=== PATIENT | male | born 1950 | race Caucasian/White ===

== ENCOUNTER → 2019-05-20 10:42 | Outpatient (CLI) | payer OTHER | END | disposition home or self-care (01) | LOC: D.HCCARDIO 10:42 | PROVIDERS: ATTEND Internal Medicine Cardiovascular Disease | DX: R94.31 Abnormal electrocardiogram [ECG] [EKG] (principal) ==

== ENCOUNTER → 2019-06-01 10:31 | Outpatient (CLI) | payer OTHER | END | disposition home or self-care (01) | LOC: D.HCCARDIO 10:31 | PROVIDERS: ATTEND Internal Medicine Cardiovascular Disease | DX: R94.31 Abnormal electrocardiogram [ECG] [EKG] (principal) ==

== ENCOUNTER 2019-06-08 12:00 | Outpatient (CLI) | payer OTHER ==
[~2019-06-08] VITALS: Ht 185.4 cm; Wt 80.9 kg
--- NOTE | ~2019-06-08 | HEMODYNAMI ---
PATIENT:BLANCA SMITH MEDICAL RECORD: [id number] : 54 LOCATION:[facility] ADMISSION DATE: 06/08/19 Generatedon:06/08/201914:32 Patient name: BLANCA SMITH Patient #: [id number] SSN: [id number] : 1950 Date of study: 06/08/2019 Page: Of Hemodynamic Procedure Report Patient Data Patient Demographics Procedure consent was obtained First Name: BLANCA Gender: Male Last Name: LUIS : 1950 Patient #: [id number] Age: 68 year(s) Race: SSN: [id number] Additional ID: [id number] Contact details Address: [place] [address] State: [place] City: [place] Zip code: [address] Past Medical History Allergies: No known allergies Admission Admission Data Admission Date: 06/08/2019 Admission Time: 12:00 Admit Source: Other Lab Results Lab Result Date: 06/08/2019 Lab Result Time: 0:00 Biochemistry Name Units Result Min Max BUN mg/dl 11 --(-*--)-- 7 18 Creatinine mg/dl 1.1 --(--*-)-- 0.6 1.3 eGFR ml/min 70.97159 *-(----)-- 90 120 NONAFRICAN CBC Name Units Result Min Max Hematocrit % 50.4 --(--*-)-- 42 54 Hemoglobin g/dl 18.2 --(----)*- 13.5 17.5 Procedure Procedure Types Cath Procedure Diagnostic Procedure C [facility] w/Coronaries Sedation Charges Moderate Sedation up to 15 minutes Procedure Description Procedure Date Procedure Date: 06/08/2019 Procedure Start Time: 14:16 Procedure End Time: 14:31 Procedure Staff Name Function Chaz Guerrero MD Performing Physician Madison Vasquez RT Monitor Edgar Vaughan RN Nurse Melody Lou RT Scrub Procedure Data Cath Procedure Fluoroscopy Diagnostic fluoroscopy Total fluoroscopy Time: 2.7 time: 2.7 min min Diagnostic fluoroscopy Total fluoroscopy dose: 527 dose: 527 mGy mGy Contrast Material Contrast Material Type Amount (ml) Isovue 370 76 Entry Location Entry Primary Successful Side Size Upsize Upsize Entry Closure Brothers ccessful Closure Location (Fr) 1 (Fr) 2 (Fr) Remarks Device Remarks Radial Right 6 Fr Mechanical artery Short Compression Estimated blood loss: 5 ml Diagnostic catheters Device Type Used For End Catheter Placement DIAGNOSTIC Jase 110cm Procedure 5Fr catheter ([id number]) Procedure Complications No complications Procedure Medications Medication Administration Route Dosage 0.9% NaCl I.V. 100 ml/hr Oxygen etCO2 Nasal cannula 2 l/min Heparin Flush Bag added to field 2 bags (1000units/500ml NS) Lidocaine 2% added to field 20 Radial Cocktail added to field 1 syringe (Verapamil 2mg/Nitro 400mcg/Heparin 1500units) Versed I.V. 2 mg Fentanyl I.V. 100 mcg Versed I.V. 2 mg Radial Cocktail I.A. 1 syringe (Verapamil 2mg/Nitro 400mcg/Heparin 1500units) Versed I.V. 2 mg Hemodynamics Rest HGB: 18.2 (g/dl) Heart Rate: 67 (bpm) Pressure Samples Time Site Value (mmHg) Purpose Heart Use Rate(bpm) 14:20 LV 106/22,22 Snapshot 67 14:21 AO 86/54(68) Pullback 70 14:21 LV 116/4,13 Pullback 70 Gradients Valve Time Site 1 Site 2 Mean SEP/DFP Peak To Heart Use (mmHg) (sec/min) Peak Rate (mmHg) (bpm) Aortic 14:21 LV AO 21 8 30 70 116/4,13 86/54(68) Calculations Valve P-P Mean Valve Index Valve Source Name Gradient Area Flow (cm2) Aortic 30 21 30 21 Snapshots Pre Cath Intra NCS Post Cath Vital Signs Time Heart Resp SPO2 etCO2 NIBP (mmHg) Rhythm Pain Sedation Rate (ipm) (%) (mmHg) Status Level (bpm) 14:02:28 69 10 99 29.9 131/76(107) NSR 0 (11) 10(A) , No pain 14:06:36 67 12 98 20.2 125/81(99) NSR 0 (11) 10(A) , No pain 14:11:26 58 15 89 25.4 113/58(96) NSR 0 (11) 10(A) , No pain 14:15:32 65 19 93 0 110/68(83) NSR 0 (11) 10(A) , No pain 14:19:42 72 14 97 24.6 95/55(68) NSR 0 (11) 10(A) , No pain 14:23:44 67 10 94 31.4 100/60(82) NSR 0 (11) 9(A) , No pain 14:27:50 61 10 96 26.9 99/57(76) NSR 0 (11) 9(A) , No pain 14:31:55 60 10 96 23.9 103/58(81) NSR 0 (11) 9(A) , No pain Medications Time Medication Route Dose Verified Delivered Reason Notes Effectiveness by by 14:02:03 0.9% NaCl I.V. 100 Edgar Edgar Per ml/hr Alexus Vaughan physician RN RN 14:02:12 Oxygen etCO2 2 l/min Edgar Edgar for low 02 Nasal Lorigan Alexus sats cannula RN RN 14:02:21 Heparin Flush added 2 bags Edgar Edgar used for Bag to Alexus Vaughan procedure (1000units/500ml field SIMONS RN NS) 14:02:32 Lidocaine 2% added 20ml Edgar Edgar for local to vial Alexus Vaughan anesthetic field SIMONS RN 14:02:42 Radial Cocktail added 1 Edgar Edgar used for (Verapamil to syringe Alexus Vaughan procedure 2mg/Nitro field SIMONS RN 400mcg/Heparin 1500units) 14:14:36 Versed I.V. 2 mg Edgar Edagr for sedation Alexus Vaughan RN RN 14:14:43 Fentanyl I.V. 100 mcg Edgar Edgar for sedation Alexus Vaughan RN RN 14:18:13 Versed I.V. 2 mg Edgar Edgar for sedation Alexus Vaughan RN RN 14:18:28 Radial Cocktail I.A. 1 Edgar Chaz for (Verapamil syringe Alexus Guerrero MD vasodilation 2mg/Nitro RN 400mcg/Heparin 1500units) 14:20:15 Versed I.V. 2 mg Edgar Edgar for sedation Alexus Vaughan RN admission discharge rn Log Time Note 13:41:28 Procedure Status Elective Heart Cath (OP). 13:41:31 Madison Vasquez RT(R) sent for patient. Start room use. 13:41:34 Time tracking: Regular hours (M-F 7:00 - 5:00) 13:41:41 Plan of Care:Hemodynamics will remain stable., Cardiac rhythm will remain stable., Comfort level will be maintained., Respiratory function will remain adequate., Patient/ family verbilizes understanding of procedure., Procedure tolerated without complication., Recovers from procedure without complications.. 13:42:05 Stress Test: yes; abnormal ANT, INF AND LAT 13:43:20 Informed consent obtained and on chart 13:44:23 Lab Result : Hematocrit 50.4 % 13:44:23 Lab Result : eGFR NONAFRICAN 70.72500 ml/min 13:44:23 Lab Result : Hemoglobin 18.2 g/dl 13:44:23 Lab Result : BUN 11 mg/dl 13:44:23 Lab Result : Creatinine 1.1 mg/dl 13:49:11 Risk of Mortality: 0.1 13:49:16 Risk of blood transfusion: 0.1 13:49:20 Risk of LUCAS: 2.2 13:49:29 Lab results completed and on chart. 13:49:43 Patient allergic to No known allergies 13:51:32 Patient received from Pre/Post Procedure Room to CCL 1 Alert and oriented. Tansferred to table in Supine position. 13:51:34 Warm blankets applied, and torres hugger turned on for patient comfort. 13:51:34 Correct patient and procedure confirmed by team. 13:51:35 ECG and BP/O2 sat monitors applied to patient. 13:55:56 Full Disclosure recording started 13:55:59 Admit Source: Other 13:56:05 H&P Date Dictated: 06/08/2019 Within 30 days and on chart., H&P Addendum completed by physician on day of procedure. (MUST COMPLETE FOR ALL OUTPATIENTS). 13:56:06 Pre-procedure instructions explained to patient. 13:56:06 Pre-op teaching completed and patient verbalized understanding. 13:56:07 Family in patients room. 13:56:08 Patient NPO since Midnight. 13:56:10 Is the patient allergic to Iodine/contrast media? No. 13:56:11 Is patient on blood thinner?No 13:56:13 Patient diabetic? No. 13:56:17 Previous problem with sedation/anesthesia? No ? 13:56:18 Snore? Yes 13:56:19 Sleep apnea? No 13:56:20 Deviated septum? No 13:56:21 Opens mouth fully? Yes 13:56:22 Sticks out tongue? Yes 13:56:23 Airway obstruction? No ? 13:56:24 Dentures? No ? 13:56:28 Pre procedure: right dorsailis pedis pulse 1+ Palpable, but thready & weak; easily obliterated 13:56:29 Modified Brando's test Ulnar < 7 seconds 13:56:31 Patient pain scale 0/10 ?. 13:56:46 IV patent on arrival in left forearm with 0.9% NaCl at [facility]. 13:56:55 Right Radial & Right Groin area was prepped with chlora-prep and draped in sterile fashion 13:56:56 Alarms reviewed by R. N. 13:56:56 Sharps counted by scrub and verified by R.N. 13:57:00 Use device set Radial Dx or PCI 13:57:01 ACIST Syringe (24235) opened to sterile field. 13:57:03 Medline Cath Pack ([id number]) opened to sterile field. 13:57:04 Bag Decanter (2002S) opened to sterile field. 13:57:04 ACIST Hand Control (65946) opened to sterile field. 13:57:04 ACIST Manifold (41594) opened to sterile field. 13:57:05 Tegaderm 4 x 4 (1626W) opened to sterile field. 13:57:06 MBrace Wrist Support ([id number]) opened to sterile field. 13:57:06 NEEDLE Cook 21G 4cm Radial (K97975) opened to sterile field. 13:57:07 EMERALD Guide Wire (502-922) opened to sterile field. 13:57:08 SHEATH 6FR RAIN (3445122) opened to sterile field. 14:01:25 Vital chart was started 14:01:34 If diabetic: On Metformin? N/A 14:01:42 Baseline sample Acquired. 14:01:47 Rhythm: sinus rhythm 14:02:03 0.9% NaCl 100 ml/hr I.V. was administered by Edgar Vaughan RN; Per physician; Verbal order read back and verified. 14:02:12 Oxygen 2 l/min etCO2 Nasal cannula was administered by Edgar Vaughan RN; for low 02 sats; Verbal order read back and verified. 14:02:21 Heparin Flush Bag (1000units/500ml NS) 2 bags added to field was administered by Edgar Vaughan RN; used for procedure; Verbal order read back and verified. 14:02:32 Lidocaine 2% 20ml vial added to field was administered by Edgar Vaughan RN; for local anesthetic; Verbal order read back and verified. 14:02:42 Radial Cocktail (Verapamil 2mg/Nitro 400mcg/Heparin 1500units) 1 syringe added to field was administered by Edgar Vaughan RN; used for procedure; Verbal order read back and verified. 14:10:22 Zero performed for pressure channel P1 14:14:08 --------ALL STOP TIME OUT------ 14:14:09 Final Timeout: patient, procedure, and site verified with staff and physician. All members of the team are in agreement. 14:14:13 Right Radial & Right Groin site verified by team. 14:14:17 Fire Safety Assessment: A--An alcohol-based skin anteseptic being used preoperatively., C--Open oxygen or nitrous oxide is being used., D--An ESU, laser, or fiber-optic light is being used. 14:14:21 Physical assessment completed. ASA score P 2 - A patient with mild systemic disease as per Chaz Guerrero MD. 14:14:27 2) 60-89 Mildly reduced kidney function, and other findings (as for stage 1) point to kidney disease. 14:14:33 Maximum allowable contrast dose (3.7 X eGFR X 0.75)197 ml. 14:14:36 Versed 2 mg I.V. was administered by Edgar Vaughan RN; for sedation; Verbal order read back and verified. 14:14:36 Sedation plan: IV Moderate Sedation Medication:Versed, Fentanyl 14:14:43 Fentanyl 100 mcg I.V. was administered by Edgar Vaughan RN; for sedation; Verbal order read back and verified. 14:15:21 Zero performed for pressure channel P1 14:16:42 Procedure started. 14:16:59 Local anesthetic to right radial artery with Lidocaine 2% by Chaz Guerrero MD.INITIAL ACCESS ONLY 14:17:43 A 6 Fr Short sheath was inserted into the Right Radial artery 14:18:13 Versed 2 mg I.V. was administered by Edgar Vaughan RN; for sedation; Verbal order read back and verified. 14:18:28 Radial Cocktail (Verapamil 2mg/Nitro 400mcg/Heparin 1500units) 1 syringe I.A. was administered by Chaz Guerrero MD; for vasodilation; Verbal order read back and verified. 14:20:07 A DIAGNOSTIC Jase 110cm 5Fr catheter ([id number]) was advanced over the wire and used for Procedure. 14:20:15 Versed 2 mg I.V. was administered by Edgar Vaughan RN; for sedation; Verbal order read back and verified. 14::28 Injector settings: Ml/sec: 5, Volume: 15, 14:20:31 LV gram done using OWENS 14:20:32 LV hemodynamics recorded. 14:20:47 EF : 60 % 14:21:11 LCA angiography performed. 14:25:09 RCA angiography performed. 14:27:12 Catheter removed. 14:27:15 ZEPHYR REGULAR TR BAND (780671) opened to sterile field. 14:27:31 Sheath removed intact; hemostasis achieved with Mechanical Compression to the Right Radial artery. 14:27:35 Procedure ended.(Physican Out) 14:28:00 Fluoroscopy time 02.70 minutes. 14:28:05 Flurop Dose total: 527 14:28:05 Fluoroscopy dose: 527 mGy 14:28:11 Dose Area Product 70518 mGy/cm. 14:28:34 Contrast amount:Isovue 370 76ml. 14:28:39 Maximum allowable dose exceeded? No. 14:28:54 Sharps counted by scrub and verified by R.N. 14:28:57 [place] band inflated with 9cc of air. 14:29:02 Post Procedure Pulses reassessed and unchanged 14:29:05 Post procedure: right dorsailis pedis pulse 2+ Normal; easily identifiable; not easily obliterated. 14:29:09 Post-procedure physical assessment completed. ASA score P 2 - A patient with mild systemic disease as per Chaz Guerrero MD. 14:29:13 Post procedure rhythm: unchanged. 14:29:15 Estimated blood loss: 5 ml 14:29:17 Post procedure instruction explained to patient.Patient verbalizes understanding. 14:29:19 Patient needs reinforcement of post procedure teaching. 14:29:40 Procedure type changed to Cath procedure, Diagnostic procedure, LHC, C w/Coronaries, Sedation Charges, Moderate Sedation up to 15 minutes 14:29:57 Procedure and supply charges have been captured, reviewed, submitted and are correct. 14:30:01 Procedure Complication : No complications 14:30:07 [facility] Findings: MVD- MD will discuss options w/ pt 14:30:11 Operative report dictated upon procedure completion. 14:30:12 See physician's report for complete and final results. 14:30:14 Report given to Pre/Post Procedure Room. 14:30:18 Patient transfered to Pre/Post Procedure Room with Stretcher. 14:31:16 Vital chart was stopped 14:31:19 Procedure ended. 14:31:19 Full Disclosure recording stopped 14:31:37 End room use (Document Last) 14:32:05 End room use (Document Last) 14:32:23 End room use (Document Last) Device Usage Item Name Manufacture Quantity Catalog Hospital Part Current Minima l Lot# / Number Charge Number Stock Stock Serial# Code ACIST Acist 1 91239 026126 [id number] [id number] 20 Syringe Medical (74073) Systems Inc Medline Medline 1 [id number] 826373 96579 714931 5 Cath Pack ([id number]) Bag Microtek 1 2001S 342984 55264 319454 5 Decanter Medical Inc. () ACIST Hand Acist 1 48298 582080 484837 097293 5 Control Medical (07101) Systems Inc ACIST Acist 1 24449 046928 622516 820776 5 Manifold Medical (93897) Systems Inc Tegaderm 4 3M 1 1626W 891127 396376 837741 5 x 4 (1626W) MBrace Advanced 1 140-0250-00 555165 77705 747109 5 Wrist Vascular Support Dynamics ([id number]) NEEDLE Cook Cook Medical 1 [id number] 108646 465773 608357 5 21G 4cm Radial ([id number]) EMERALD Cardinal 1 502-455 174207 494393 730[address] [facility] (502455) SHEATH 6FR Cardinal 1 [id number] 745560 4422890 303366 5 [facility] (0297925) DIAGNOSTIC Terumo 1 80-2100 482901 737409 458876 5 Jase 110cm 5Fr catheter (734184) ZEPHYR Cardinal 1 555443 627135 3785642 599041 5 REGULAR TR Health BAND (578763) Signature Audit [place] Stage Time Signature Unsigned Intra-Procedure 06/08/2019 Madison Vasquez 2:32:05 PM RT(R) Intra-Procedure 06/08/2019 Edgar 2:32:23 PM Alexus SIMONS Intra-Procedure 06/08/2019 Chaz Guerrero MD 2:32:57 PM [facility] [address] [place] [address]
[2019-06-08] MEDS ORDERED: BAYER CHEWABLE81 MG PO (12:22)
[2019-06-08] MEDS ORDERED: FISH OIL 1,0001 CA1 PO (12:22)
[2019-06-08] MEDS ORDERED: B-12 DOTS500 MCG PO (12:23)
[2019-06-08] MEDS ORDERED: ASCORBIC ACID500 MG PO (12:23)
[2019-06-08 12:45] VITALS: BP 168/79; Ht 185.4 cm; Wt 80.9 kg
[2019-06-08 13:08] LABS: ANION GAP 10.6 mmol/L (8-16); CALCIUM 9.3 mg/dL (8.5-10.1); CARBON DIOXIDE 31.2 mmol/L (21.0-32.0); CREATININE - SERUM 1.1 mg/dL (0.6-1.3); LDL-HDL RATIO 1.7 ratio (1.5-3.5); POTASSIUM - SERUM 3.8 mmol/L (3.5-5.1)
[2019-06-08 13:25] LABS: BASOPHILS 0.7 % (0-2); EOSINOPHILS 0.8 % (0-7); HEMATOCRIT 50.4 % (42.0-54.0); HEMOGLOBIN 18.2 g/dL (13.5-17.5); IMMATURE GRANULOCYTES 0.3 % (0-5); LYMPHOCYTES 22.3 % (15-50); MCH 34.8 pg (26.0-34.0); MCHC 36.1 g/dL (31.0-37.0); MCV 96.4 fL (80.0-100.0); MEAN PLATELET VOLUME 11.3 fL (7.4-10.4); MONOCYTES 8.7 % (2-11); NEUTROPHILS 67.2 % (40-80); PLATELET COUNT 195 10x3/uL (130-400); RBC 5.23 10x6/uL (4.20-6.10); RDW 12.2 % (11.5-14.5); WBC 8.8 10x3/uL (4.8-10.8)
--- NOTE | 2019-06-08 14:39 | NUR ---
PT ARRIVED BY STRETCHER. PLACED ON MONITORS. ASSESSMENT COMPLETED. VSS AT THIS TIME. CALL LIGHT WITHIN REACH.
--- NOTE | 2019-06-08 14:55 | NUR ---
RIGHT WRIST DRESSING C/D/I. NO S/S OF HEMATOMA NOTED. CALL LIGHT WITHIN REACH. FAMILY AT BEDSIDE. CALL LIGHT WITHING REACH. VSS AT THIS TIME. FAMILY AT BEDSIDE.
--- NOTE | 2019-06-08 15:25 | NUR ---
PT SITTING UP VISITING WITH FAMILY. RIGHT WRIST Z BAND IN PLACE. NO BLEEDING/HEMATOMA NOTED. CALL LIGHT WITHIN REACH.
--- NOTE | 2019-06-08 16:00 | NUR ---
2cc OF AIR REMOVED FROM Z BAND. NO BLEEDING/HEMATOMA NOTED. CALL LIGHT WITHIN REACH. VSS AT THIS TIME. FAMILY AT BEDSIDE
--- NOTE | 2019-06-08 16:15 | NUR ---
3cc OF AIR REMOVED FROM Z BAND. NO BLEEDING/HEMATOMA NOTED. CALL LIGHT WITHIN REACH. FAMILY AT BEDSIDE. VSS AT THIS TIME.
--- NOTE | 2019-06-08 16:20 | NUR ---
DR. TABARES AT BEDSIDE SPEAKING WITH PT AND PT'S FAMILY. CALLED IGLES[facility] AND DR. GARZON'S OFFICE AND OBTAINED AN APPT FOR PT TO SEE DURAN TOMORROW AT 11:45 AM. CV SURGERY INFORMATION PACKET GIVEN TO PT WITH APPT DATE AND TIME.
--- NOTE | 2019-06-08 16:30 | NUR ---
4cc OF AIR REMOVED FROM Z BAND. NO BLEEDING/HEMATOMA NOTED.
--- NOTE | 2019-06-08 16:45 | NUR ---
PIV D/C'D WITH CATH TIP INTACT. TOLERATED WELL. RIGHT WRIST Z BAND REMOVED AND DRESSING APPLIED. NO BLEEDING/HEMATOMA NOTED. PT INSTRUCTED TO GET UP AND DRESSED. RIGHT WRIST BRACE IN PLACE. PT INSTRUCTED TO NOT BEND OR FLEX RIGHT WRIST. HE VOICED UNDERSTANDING.
--- NOTE | 2019-06-08 16:55 | NUR ---
PT AMBULATED TO RESTROOM. VOIDED WITHOUT DIFFICULTY. STEADY GAIT NOTED. DISCUSSED DISCHARGE INSTRUCTIONS WITH PT AND PT'S FAMILY. THEY VOICED UNDERSTANDING.
--- NOTE | 2019-06-08 17:00 | NUR ---
PT TAKEN OUT TO VEHICLE BY WHEELCHAIR. NO S/S OF DISTRESS NOTED. ALL BELONGINGS AND PAPEROWORK IN HAND.
== END 2019-06-08 17:00 | disposition home or self-care (01) ==
LOC: D.CATH 12:00
PROVIDERS: ATTEND Internal Medicine Cardiovascular Disease
DX: R94.30 Abnormal result of cardiovascular function study, unspecified (principal); I25.10 Atherosclerotic heart disease of native coronary artery without angina pectoris; R06.09 Other forms of dyspnea